=== PATIENT | female | born 1970 | race Hispanic/Latino ===

== ENCOUNTER → 2022-11-17 | Outpatient (CLI) | payer OTHER | END | disposition home or self-care (01) | LOC: DAH 10:00 → EDSTATUS 13:55 → DAH 13:58 | PROVIDERS: ATTEND Internal Medicine Geriatric Medicine | DX: M50.122 Cervical disc disorder at C5-C6 level with radiculopathy (principal); M50.123 Cervical disc disorder at C6-C7 level with radiculopathy; I63.9 Cerebral infarction, unspecified; G45.9 Transient cerebral ischemic attack, unspecified | CPT/HCPCS: 70551; 72141 ==